=== PATIENT | female | born 1955 | race Caucasian/White ===

== ENCOUNTER 2016-10-05 20:33 | Inpatient (IN) | payer OTHER ==
[~2016-10-05] VITALS: Ht 160 cm; Wt 50.3 kg
[~2016-10-05 20:33] MED LIST: ABIL15TA2 PO; PENI500T PO
[2016-10-05 20:42] VITALS: BP 136/86; PULSE 80; RESP 20; TEMP 98.1; O2SAT 95
[2016-10-05] MEDS ORDERED: HALDOL PO (20:47)
[2016-10-05] MEDS ORDERED: FLUO-1 PO (21:07)
[2016-10-05 21:30] VITALS: RESP 18
[2016-10-05 21:43] LABS: AUTOMATED NEUTROPHIL # 7.3 TH/MM3 (1.8-7.7); BASOPHIL # 0.1 TH/MM3 (0-0.2); BASOPHIL % 0.9 % (0.0-2.0); EOSINOPHIL # 0.2 TH/MM3 (0-0.4); EOSINOPHIL % 1.7 % (0.0-4.0); HEMATOCRIT 39.8 % (35.0-46.0); HEMO FLAGS DIFF FINAL; LYMPH % 22.5 % (9.0-44.0); LYMPHOCYTE # 2.5 TH/MM3 (1.0-4.8); MEAN CELL VOLUME 91.1 FL (80.0-100.0); MEAN CORPUSCULAR HEMOGLOBIN 31.8 PG (27.0-34.0); MEAN CORPUSCULAR HGB CONC 34.8 % (32.0-36.0); MONO % 8.1 % (0.0-8.0); NEUT % 66.8 % (16.0-70.0); PLATELET COUNT 183 TH/MM3 (150-450); RED BLOOD COUNT 4.37 MIL/MM3 (4.00-5.30); RED CELL DISTRIBUTION WIDTH 13.9 % (11.6-17.2)
[2016-10-05 21:45] LABS: BLOOD, URINE NEG (NEG); GLUCOSE,URINE NEG (NEG); KETONE, URINE NEG (NEG); NITRITE,URINE NEG (NEG); PH, URINE 6.5 (5.0-8.5); URINE COLOR LIGHT-YELLOW (YELLW/STRAW)
[2016-10-05 21:46] LABS: COMMENT (UR) CULT NOT INDICATED; CULTURE IF INDICATED CULT NOT INDICATED
[2016-10-05 21:59] LABS: ACETAMINOPHEN 8.4 MCG/ML (10.0-30.0); ALT (GPT) 19 U/L (10-53)
[2016-10-05 22:00] LABS: ALCOHOL LESS THAN 3 MG/DL (0-5); ANION GAP 5 MEQ/L (5-15); AST (GOT) 15 U/L (15-37); BLOOD UREA NITROGEN 9 MG/DL (7-18); CHLORIDE 104 MEQ/L (98-107); GLOMERULAR FILTRATION RATE 146 ML/MIN (>89); SODIUM (NA) 136 MEQ/L (136-145)
[2016-10-05] MEDS ORDERED: CALCIUM CARBONATE 500 MG CHEWABLE TAB CHEW ONE (22:00)
[2016-10-05 22:01] LABS: ALKALINE PHOSPHATASE 101 U/L (45-117); TOTAL BILIRUBIN ADULT 0.2 MG/DL (0.2-1.0)
--- NOTE | 2016-10-05 22:51 | PD ---
HPI Chief Complaint: Psychiatric Symptoms Time Seen by Provider: 20:59 Travel History International Travel<30 days: No Contact w/Intl Traveler<30days: No Traveled to known affect area: No History of Present Illness HPI 60-year-old female who is brought to the emergency room under Morrow act, she lives at a halfway facility, reports that she took 82 - 5 mg HALDOL tabs about 2-3 days ago. As per [facility], they reported that they administer medications and they are not sure how patient accessed the haldol. Patient was placed under MORROW ACT as patient took these medications in attempt to commit suicide. PFSH Past Medical History Depression: Yes Cancer: No Diminished Hearing: No Endocrine: No Psychiatric: Yes Schizophrenia: Yes Tetanus Vaccination: Unknown Influenza Vaccination: No ?: Not Past Surgical History Section: Yes Gynecologic Surgery: Yes (C SECTION) Hysterectomy: No Other Surgery: Yes Social History Alcohol Use: No Tobacco Use: Yes Substance Use: No (H/O CRACK USE IN THE REMOTE PAST) Allergies-Medications (Allergen,Severity, Reaction): Coded Allergies: risperidone (Unverified Allergy, Mild, 09/30/16) diphenhydramine (Unverified Adverse Reaction, Unknown, ITCH, 09/30/16) Uncoded Allergies: SERAQUEL (Allergy, Mild, 04/05/07) Reported Meds & Prescriptions Reported Meds & Active Scripts Active Reported Prozac (Fluoxetine HCl) 10 Mg Cap 10 Mg PO DAILY [Haldol] 5 Mg PO DAILY Review of Systems General / Constitutional: No: Fever Eyes: No: Visual changes HENT: No: Headaches Cardiovascular: No: Chest Pain or Discomfort Respiratory: No: Shortness of Breath Gastrointestinal: No: Abdominal Pain Genitourinary: No: Dysuria Musculoskeletal: No: Pain Skin: No Rash Neurologic: No: Weakness Psychiatric: Positive: Depression, Suicidal Ideations Endocrine: No: Polydipsia Hematologic/Lymphatic: No: Easy Bruising Physical Exam Narrative GENERAL: No acute distress, nontoxic SKIN: Focused skin assessment warm/dry. HEAD: Atraumatic. Normocephalic. EYES: Pupils equal and round. No scleral icterus. No injection or drainage. ENT: No nasal bleeding or discharge. Mucous membranes pink and moist. NECK: Trachea midline. No JVD. CARDIOVASCULAR: Regular rate and rhythm. No murmur appreciated. RESPIRATORY: No accessory muscle use. Clear to auscultation. Breath sounds equal bilaterally. GASTROINTESTINAL: Abdomen soft, non-tender, nondistended. Hepatic and splenic margins not palpable. MUSCULOSKELETAL: No obvious deformities. No clubbing. No cyanosis. No edema. NEUROLOGICAL: Awake and alert. No obvious cranial nerve deficits. Motor grossly within normal limits. Normal speech. PSYCHIATRIC: Depressed mood, suicidal ideations Data Data Last Documented VS Vital Signs Date Time Temp Pulse Resp B/P (MAP) Pulse Ox O2 Delivery O2 Flow Rate FiO2 10/05/16 21:30 18 10/05/16 20:42 98.1 80 136/86 (103) 95 Orders Orders Complete Blood Count With Diff (10/05/16 20:59) Comprehensive Metabolic Panel (10/05/16 20:59) Urinalysis - C+S If Indicated (10/05/16 20:59) Psych Screen (10/05/16 20:59) Drug Screen, Random Urine (10/05/16 20:59) Alcohol (Ethanol) (10/05/16 20:59) Salicylates (Aspirin) (10/05/16 20:59) Tylenol (Acetaminophen) (10/05/16 20:59) Electrocardiogram (10/05/16 ) Ecg Monitoring (10/05/16 21:28) Oximetry (10/05/16 21:28) Calcium Carbonate Chew (Tums Chew) (10/05/16 22:00) Labs Laboratory Tests Test 10/05/16 21:00 White Blood Count 11.0 TH/MM3 Red Blood Count 4.37 MIL/MM3 Hemoglobin 13.9 GM/DL Hematocrit 39.8 % Mean Corpuscular Volume 91.1 FL Mean Corpuscular Hemoglobin 31.8 PG Mean Corpuscular Hemoglobin Concent 34.8 % Red Cell Distribution Width 13.9 % Platelet Count 183 TH/MM3 Mean Platelet Volume 7.8 FL Neutrophils (%) (Auto) 66.8 % Lymphocytes (%) (Auto) 22.5 % Monocytes (%) (Auto) 8.1 % Eosinophils (%) (Auto) 1.7 % Basophils (%) (Auto) 0.9 % Neutrophils # (Auto) 7.3 TH/MM3 Lymphocytes # (Auto) 2.5 TH/MM3 Monocytes # (Auto) 0.9 TH/MM3 Eosinophils # (Auto) 0.2 TH/MM3 Basophils # (Auto) 0.1 TH/MM3 CBC Comment DIFF FINAL Differential Comment Urine Color LIGHT-YELLOW Urine Turbidity CLEAR Urine pH 6.5 Urine Specific [place] 1.008 Urine Protein NEG mg/dL Urine Glucose (UA) NEG mg/dL Urine Ketones NEG mg/dL Urine Occult Blood NEG Urine Nitrite NEG Urine Bilirubin NEG Urine Urobilinogen LESS THAN 2.0 MG/DL Urine Leukocyte Esterase NEG Urine RBC 2 /hpf Urine WBC LESS THAN 1 /hpf Microscopic Urinalysis Comment CULT NOT INDICATED Blood Urea Nitrogen 9 MG/DL Creatinine 0.44 MG/DL Random Glucose 87 MG/DL Total Protein 6.0 GM/DL Albumin 3.0 GM/DL Calcium Level 7.7 MG/DL Alkaline Phosphatase 101 U/L Aspartate Amino Transf (AST/SGOT) 15 U/L Alanine Aminotransferase (ALT/SGPT) 19 U/L Total Bilirubin 0.2 MG/DL Sodium Level 136 MEQ/L Potassium Level 4.0 MEQ/L Chloride Level 104 MEQ/L Carbon Dioxide Level 27.0 MEQ/L Anion Gap 5 MEQ/L Estimat Glomerular Filtration Rate 146 ML/MIN Salicylates Level 2.4 MG/DL Urine Opiates Screen NEG Acetaminophen Level 8.4 MCG/ML Urine Barbiturates Screen NEG Urine Amphetamines Screen NEG Urine Benzodiazepines Screen NEG Urine Cocaine Screen NEG Urine Cannabinoids Screen NEG Ethyl Alcohol Level LESS THAN 3 MG/DL MDM Medical Decision Making Medical Screen Exam Complete: Yes Emergency Medical Condition: Yes Medical Record Reviewed: Yes Interpretation(s) EKG at 2142: NSR at 70bpm, qt/qtc: 409/430, no acute st or t wave changes Vital Signs Date Time Temp Pulse Resp B/P (MAP) Pulse Ox O2 Delivery O2 Flow Rate FiO2 10/05/16 21:30 18 10/05/16 20:42 98.1 80 20 136/86 (103) 95 Laboratory Tests Test 10/05/16 21:00 White Blood Count 11.0 TH/MM3 (4.0-11.0) Red Blood Count 4.37 MIL/MM3 (4.00-5.30) Hemoglobin 13.9 GM/DL (11.6-15.3) Hematocrit 39.8 % (35.0-46.0) Mean Corpuscular Volume 91.1 FL (80.0-100.0) Mean Corpuscular Hemoglobin 31.8 PG (27.0-34.0) Mean Corpuscular Hemoglobin Concent 34.8 % (32.0-36.0) Red Cell Distribution Width 13.9 % (11.6-17.2) Platelet Count 183 TH/MM3 (150-450) Mean Platelet Volume 7.8 FL (7.0-11.0) Neutrophils (%) (Auto) 66.8 % (16.0-70.0) Lymphocytes (%) (Auto) 22.5 % (9.0-44.0) Monocytes (%) (Auto) 8.1 % (0.0-8.0) Eosinophils (%) (Auto) 1.7 % (0.0-4.0) Basophils (%) (Auto) 0.9 % (0.0-2.0) Neutrophils # (Auto) 7.3 TH/MM3 (1.8-7.7) Lymphocytes # (Auto) 2.5 TH/MM3 (1.0-4.8) Monocytes # (Auto) 0.9 TH/MM3 (0-0.9) Eosinophils # (Auto) 0.2 TH/MM3 (0-0.4) Basophils # (Auto) 0.1 TH/MM3 (0-0.2) CBC Comment DIFF FINAL Differential Comment Urine Color LIGHT-YELLOW (YELLW/STRAW) Urine Turbidity CLEAR (CLEAR) Urine pH 6.5 (5.0-8.5) Urine Specific [place] 1.008 (1.002-1.035) Urine Protein NEG mg/dL (NEG-TRACE) Urine Glucose (UA) NEG mg/dL (NEG) Urine Ketones NEG mg/dL (NEG) Urine Occult Blood NEG (NEG) Urine Nitrite NEG (NEG) Urine Bilirubin NEG (NEG) Urine Urobilinogen LESS THAN 2.0 MG/DL (LESS Urine Leukocyte Esterase NEG (NEG) Urine RBC 2 /hpf (0-3) Urine WBC LESS THAN 1 /hpf (0-5) Microscopic Urinalysis Comment CULT NOT INDICATED Blood Urea Nitrogen 9 MG/DL (7-18) Creatinine 0.44 MG/DL (0.50-1.00) Random Glucose 87 MG/DL (74-106) Total Protein 6.0 GM/DL (6.4-8.2) Albumin 3.0 GM/DL (3.4-5.0) Calcium Level 7.7 MG/DL (8.5-10.1) Alkaline Phosphatase 101 U/L (45-117) Aspartate Amino Transf (AST/SGOT) 15 U/L (15-37) Alanine Aminotransferase (ALT/SGPT) 19 U/L (10-53) Total Bilirubin 0.2 MG/DL (0.2-1.0) Sodium Level 136 MEQ/L (136-145) Potassium Level 4.0 MEQ/L (3.5-5.1) Chloride Level 104 MEQ/L (98-107) Carbon Dioxide Level 27.0 MEQ/L (21.0-32.0) Anion Gap 5 MEQ/L (5-15) Estimat Glomerular Filtration Rate 146 ML/MIN (>89) Salicylates Level 2.4 MG/DL (2.8-20.0) Urine Opiates Screen NEG (NEG) Acetaminophen Level 8.4 MCG/ML (10.0-30.0) Urine Barbiturates Screen NEG (NEG) Urine Amphetamines Screen NEG (NEG) Urine Benzodiazepines Screen NEG (NEG) Urine Cocaine Screen NEG (NEG) Urine Cannabinoids Screen NEG (NEG) Ethyl Alcohol Level LESS THAN 3 MG/DL (0-5) Differential Diagnosis Differential includes drug overdose, suicidal ideations Narrative Course 60-year-old female who is brought to the emergency room under Morrow act, she lives at a halfway facility, reports that she took 82 5 mg HALDOL tabs about 2-3 days ago. VSS. Call was made to poison control, plan to obs patient. Once medically cleared, will have patient be seen by psych screener Meka Juares DO Oct 05, 2016 22:51
[2016-10-06] VITALS: BP 131/84; PULSE 79; RESP 18; O2SAT 96
[2016-10-06 02:29] VITALS: BP 145/69; PULSE 65; RESP 16
[2016-10-06 06:45] VITALS: BP 160/82; PULSE 67; RESP 18
[2016-10-06] MEDS ORDERED: LORazepam 1 MG TAB PO PRN (11:45)
[2016-10-06] MEDS ORDERED: LORazepam 2 MG/ML VIAL IM PRN ×2 (11:45)
[2016-10-06] MEDS ORDERED: LORazepam 0.5 MG TAB PO PRN (11:45)
[2016-10-06] MEDS ORDERED: ALUMINUM/MAGNESIUM/SIMETH 30 ML CUP PO PRN (11:45)
[2016-10-06] MEDS ORDERED: MAGNESIUM HYDROXIDE SUSP 30 ML CUP PO PRN (11:45)
[2016-10-06] MEDS ORDERED: ACETAMINOPHEN 325 MG TAB PO PRN (11:45)
--- NOTE | 2016-10-06 11:58 | HHI.HP ---
Provisional Diagnosis Admission Date [place] I. Major depression, single episode, severe, without psychotic features Certification of Person's Competence To Provide Express and Informed Consent I have personally examined Marley Cobb , a person being served at [facility] on, Oct 06, 2016 11:47. Express and informed consent means consent voluntarily given in writing, by a competent person, after sufficient explanation and disclosure of the subject matter involved to enable the person to make a knowing and willful decision without any element of force, fraud, deceit, duress, or other form of constraint or coercion. This person is 18 years of age or older, is not now known to be incompetent to consent to treatment with a guardian advocate, and does not have a health care surrogate or proxy currently making medical treatment decisions. I have found this person to be one of the following: [x] Competent to provide express and informed consent, as defined above, for voluntary admission to this facility and is competent to provide express and informed consent for treatment. He/she has the consistent capacity to make well reasoned, willful, and knowing decisions concerning his or her medical or mental health treatment. The person fully and consistently understands the purpose of the admission for examination/placement and is fully capable of personally exercising all rights assured [place] Incompetent to provide express and informed consent to voluntary admission, and this is incompetent to provide express and informed consent to treatment. The person must be transferred to involuntary status and a petition for a guardian advocate filed with the Circuit Court. [] Refusing to provide express and informed consent to voluntary admission but is competent to provide express and informed consent for treatment. The person must be discharged or transferred to involuntary status. Form shall be completed within 24 hours of a person's arrival at the receiving facility and filed in the clinical record of each person: 1. Admitted on a voluntary basis 2. Permitted to provide express and informed consent to his/her own treatment 3. Allowed to transfer from involuntary to voluntary status 4. Prior to permitting a person to consent to his or her own treatment after having been previously found incompetent to consent to treatment. History of Present Illness Capacity: Has Capacity HPI This is a 60-year-old female brought in under a Morrow act after overdosing on Haldol. Reportedly, the patient overdosed on approximately 82 pills of 5 mg of Haldol last Thursday. She did this as a uriel devorah suicide attempt. She lives at a long-term and states she is wanting to change her long-term. The staff at her current long-term reportedly did not know how she obtained so many pills as they administer her medicines. The patient is living at [facility] and wants to move to [facility]. She has been treated by Dr. hopson for and was seen by her doctor recently. Her toxicology screen was negative at the time of this suicide attempt as she admits she does not use illicit drugs or alcohol. The patient describes multiple symptoms of depression including depressed mood, suicidal ideation with plan and recent attempt, anhedonia, low self-esteem, markedly diminished energy, sleep and appetite disturbance, social withdrawal, anxiety and anhedonia. The patient states she feels "really tired". Patient has previously been admitted to [facility] as well as to [facility] ([facility] She has been diagnosed with psychosis in the past and she has been diagnosed with a borderline personality I Dr. Vik Mcdowell, both occurring in 2007. Review of Systems Except as stated in HPI: all other systems reviewed are Neg Past Psych History Psychological trauma history Patient does report a history of psychological trauma when she was younger but she does not wish to discuss the details at this time. Violence risk - others (6 mos) Minimal Violence risk - self (6 mos) High Substance Abuse History Drugs/Alcohol past 12 months Denied Past Family Social History Coded Allergies: risperidone (Unverified Allergy, Mild, 09/30/16) diphenhydramine (Unverified Adverse Reaction, Unknown, ITCH, 09/30/16) Uncoded Allergies: SERAQUEL (Allergy, Mild, 04/05/07) Reported Medications Fluoxetine (Prozac) 10 Mg Cap, 10 MG PO DAILY, #30 CAP 0 Refills 10/05/16 [Haldol] No Conflict Check, 5 MG PO DAILY 10/05/16 Discontinued Reported Medications Abilify (Abilify) 15 Mg Tab, 15 MG PO DAILY, 0 Refills 04/16/07 Discontinued Scripts Penicillin V Potassium (Pen Vk) 500 Mg Tab, 500 MG PO QID, #40 TAB Prov:SearsVandana MARGARETTE 10/12/[address] Ledesma with Prozac and Haldol. Family History Positive for mood and anxiety disorders. Social History Patient is currently unemployed. She does not have a recent history of alcohol or drug abuse. She also reports no family members who are supportive of her. She has been living in group homes for years. Patient's Strengths (min. 2) Verbal and has access to healthcare. Physical Exam GENERAL: SKIN: Warm and dry. HEAD: Normocephalic. EYES: No scleral icterus. No injection or drainage. NECK: Supple, trachea midline. No JVD or lymphadenopathy. CARDIOVASCULAR: Regular rate and rhythm without murmurs, gallops, or rubs. RESPIRATORY: Breath sounds equal bilaterally. No accessory muscle use. GASTROINTESTINAL: Abdomen soft, non-tender, nondistended. MUSCULOSKELETAL: No cyanosis, or edema. BACK: Nontender without obvious deformity. No CVA tenderness. Vital Signs Vital Signs Date Time Temp Pulse Resp B/P (MAP) Pulse Ox O2 Delivery O2 Flow Rate FiO2 10/06/16 06:45 67 18 160/82 (108) 10/06/16 00:00 96 Room Air 10/05/16 20:42 98.1 Mental Status Examination Speech: Hesitant Orientation: x3 Memory: Unremarkable Thought Process: Organized, Goal Directed Thought Content: Unremarkable Hallucination Type: None Attention and Concentration: Easily Distracted Suicidal Ideation: Yes Previous Suicide Attempts: Yes Homicidal Ideation: No Previous Homicide Attempts: No Insight: Fair Judgment: Unrealistic Affect: Sad Affect if Inappropriate: Blunt Mood: Sad Motor Activity: Normal gait Assessment & Plan Problem List: (1) Severe major depression, single episode, without psychotic features ICD Codes: F32.2 - Major depressive disorder, single episode, severe without psychotic features Assessment & Plan Estimated LOS: days this is a 60-year-old female with a history of previous depressive episodes and suicidality, currently Morrow acted after overdosing on approximately 80 Haldol pills. The patient has multiple symptoms of depression and is considered to be at very high risk for self-harm based on her recent behavior and current status. This physician is admitting her for evaluation and treatment. This includes a CBC and comprehensive metabolic panel. These are being obtained to determine if an infectious or metabolic process is causing or contributing to her depression. Furthermore, she will have a vitamin B-12, vitamin D and thyroid stimulating hormone levels checked as abnormalities in this area can also cause or contribute to her depression. Due to her age as well as her overdose on Haldol, she will receive an EKG to determine her cardiac conduction status and her medications will be withheld at this time. This physician spoke with the patient's nurse regarding her recent behavior in the emergency department. Apparently she has looked consistently depressed since her arrival. This physician will also request case management to become involved to gather more information regarding her depression at the current long-term and to assist with appropriate disposition planning. Jeremi Daniels MD Oct 06, 2016 11:58
--- NOTE | 2016-10-06 13:43 | EKG ---
Date Performed: 10/05/2016 Time Performed: 21:42:20 PTAGE: 60 years EKG: Sinus rhythm WITH SINUS ARRHYTHMIA POSSIBLE RIGHT VENTRICULAR CONDUCTION DELAY BORDERLINE ECG PREVIOUS TRACING : 03/21/2005 09.59 No significant change from previous tracing noted. DOCTOR: Jf Correa Interpretating Date/Time 10/06/2016 13:42:08
[2016-10-06 16:36] VITALS: BP 133/60; PULSE 70; RESP 18; TEMP 98.1; O2SAT 95
[2016-10-06] MEDS: traZODone HCL 50 MG TAB PO PRN (21:54)
[2016-10-07 06:10] VITALS: BP 130/60; PULSE 75; RESP 18; TEMP 98.1; O2SAT 95
[2016-10-07 09:31] LABS: AUTOMATED NEUTROPHIL # 4.7 TH/MM3 (1.8-7.7); BASOPHIL % 0.4 % (0.0-2.0); EOSINOPHIL # 0.1 TH/MM3 (0-0.4); EOSINOPHIL % 1.7 % (0.0-4.0); HEMATOCRIT 45.3 % (35.0-46.0); HEMO FLAGS DIFF FINAL; LYMPHOCYTE # 2.3 TH/MM3 (1.0-4.8); MEAN CELL VOLUME 91.8 FL (80.0-100.0); MEAN CORPUSCULAR HEMOGLOBIN 30.5 PG (27.0-34.0); MEAN CORPUSCULAR HGB CONC 33.2 % (32.0-36.0); NEUT % 60.9 % (16.0-70.0); PLATELET COUNT 199 TH/MM3 (150-450); RED BLOOD COUNT 4.93 MIL/MM3 (4.00-5.30); RED CELL DISTRIBUTION WIDTH 14.3 % (11.6-17.2); WHITE BLOOD COUNT 7.7 TH/MM3 (4.0-11.0)
[2016-10-07 10:07] LABS: ANION GAP 8 MEQ/L (5-15); AST (GOT) 6 U/L (15-37); BICARBONATE 27.3 MEQ/L (21.0-32.0); BLOOD UREA NITROGEN 13 MG/DL (7-18); CHLORIDE 102 MEQ/L (98-107); GLOMERULAR FILTRATION RATE 106 ML/MIN (>89); POTASSIUM 3.9 MEQ/L (3.5-5.1); SODIUM (NA) 137 MEQ/L (136-145)
[2016-10-07 10:26] LABS: ALKALINE PHOSPHATASE 92 U/L (45-117); ALT (GPT) 16 U/L (10-53); HDL CHOLESTEROL 44.5 MG/DL (40.0-60.0); LDL CHOLESTEROL 118 MG/DL (0-99); TOTAL BILIRUBIN ADULT 0.3 MG/DL (0.2-1.0)
--- NOTE | 2016-10-07 11:56 | HHI.PYPN ---
Subjective Remarks Patient seen in day room with nurse Weiss, chart review, patient initially seen by Dr. Jeremi Daniels who did the H&P. His dictation reviewed and agreed with. I do feel patient meets criteria for admission under the Morrow act I will do first opinion requests a second opinion. I have also finished the initial psychiatric order template. Patient seen by me on the unit. She did recognize me from an admission in 2004 the diagnosis at that time of schizoaffective disorder. Patient acknowledges continued auditory hallucinations of a somewhat threatening demeaning nature. She acknowledges noncompliance medication. Vague suicidal ideation and increased depression. It appears she recently moved from [facility] to a new [facility]. She may have second thoughts about that. We did discuss medications we will restart her on her Haldol at 5 mg twice a day and add Zoloft 25 mg in the a.m. We'll have the counselor contact Sue naik and also her more recent [facility] to work on issues that may be related to placement Review of Systems Constitutional: DENIES: Diaphoretic episodes, Fatigue, Fever, Weight gain, Weight loss, Chills, Dizziness, Change in appetite, Night Sweats Endocrine: DENIES: Abnorml menstrual pattern, Heat/cold intolerance, Polydipsia , Polyuria, Polyphagia Eyes: DENIES: Blurred vision, Diplopia, Eye inflammation, Eye pain, Vision loss , Photosensitivity, Double Vision Ears, nose, mouth, throat: DENIES: Tinnitus, Hearing loss, Vertigo, Nasal discharge, Oral lesions, Throat pain, Hoarseness, Ear Pain, Running Nose, Epistaxis, Sinus Pain, Toothache, Odynophagia Respiratory: DENIES: Apneas, Cough, Snoring, Wheezing, Hemoptysis, Sputum production, Shortness of breath Cardiovascular: DENIES: Chest pain, Palpitations, Syncope, Dyspnea on Exertion , PND, Lower Extremity Edema, Orthopnea, Claudication Gastrointestinal: DENIES: Abdominal pain, Black stools, Bloody stools, Constipation, Diarrhea, Nausea, Vomiting, Difficulty Swallowing, Anorexia Genitourinary: DENIES: Abnormal vaginal bleeding, Dysmenorrhea, Dyspareunia, Sexual dysfunction, Urinary frequency, Urinary incontinence, Urgency, Hematuria , Dysuria, Nocturia, Vaginal discharge Musculoskeletal: DENIES: Joint pain, Muscle aches, Stiffness, Joint Swelling, Back pain, Neck pain Integumentary: DENIES: Abnormal pigmentation, Pruritus, Rash, Nail changes, Breast masses, Breast skin changes, Nipple discharge Hematologic/lymphatic: DENIES: Bruising, Lymphadenopathy Immunologic/allergic: DENIES: Eczema, Urticaria Neurologic: DENIES: Abnormal gait, Headache, Localized weakness, Paresthesias, Seizures, Speech Problems, Tremor, Poor Balance Psychiatric: COMPLAINS OF: Anxiety, Depression, Hallucinations, Suicidal Ideation Objective Alert: Yes [place]: Person, Place, Date, Situation Mood: Anxious, Depressed Affect: Other (slight increased range and intensity) Memory Intact: Comment (poor) Hallucinations: Auditory (demanding intimidating) Delusions: Yes (vague) Delusion Type: Paranoid (vague) Suicidal: Ideation (somewhat intimidated by the voices) Homicidal: Ideation (denies) Insight/Judgment Poor Labs Test 10/07/16 08:35 White Blood Count 7.7 TH/MM3 Red Blood Count 4.93 MIL/MM3 Hemoglobin 15.1 GM/DL Hematocrit 45.3 % Mean Corpuscular Volume 91.8 FL Mean Corpuscular Hemoglobin 30.5 PG Mean Corpuscular Hemoglobin Concent 33.2 % Red Cell Distribution Width 14.3 % Platelet Count 199 TH/MM3 Mean Platelet Volume 7.3 FL Neutrophils (%) (Auto) 60.9 % Lymphocytes (%) (Auto) 30.0 % Monocytes (%) (Auto) 7.0 % Eosinophils (%) (Auto) 1.7 % Basophils (%) (Auto) 0.4 % Neutrophils # (Auto) 4.7 TH/MM3 Lymphocytes # (Auto) 2.3 TH/MM3 Monocytes # (Auto) 0.5 TH/MM3 Eosinophils # (Auto) 0.1 TH/MM3 Basophils # (Auto) 0.0 TH/MM3 CBC Comment DIFF FINAL Differential Comment Blood Urea Nitrogen 13 MG/DL Creatinine 0.58 MG/DL Random Glucose 113 MG/DL Total Protein 6.5 GM/DL Albumin 3.2 GM/DL Calcium Level 9.1 MG/DL Alkaline Phosphatase 92 U/L Aspartate Amino Transf (AST/SGOT) 6 U/L Alanine Aminotransferase (ALT/SGPT) 16 U/L Total Bilirubin 0.3 MG/DL Sodium Level 137 MEQ/L Potassium Level 3.9 MEQ/L Chloride Level 102 MEQ/L Carbon Dioxide Level 27.3 MEQ/L Anion Gap 8 MEQ/L Estimat Glomerular Filtration Rate 106 ML/MIN Triglycerides Level 93 MG/DL Cholesterol Level 181 MG/DL LDL Cholesterol 118 MG/DL HDL Cholesterol 44.5 MG/DL Cholesterol/HDL Ratio 4.06 RATIO Vitamin B12 Level 436 PG/ML 25-Hydroxy Vitamin D Total 31.5 ng/ML Thyroid Stimulating Hormone 3rd Gen 1.750 uIU/ML Vitals/IOs Vital Signs Date Time Temp Pulse Resp B/P (MAP) Pulse Ox O2 Delivery O2 Flow Rate FiO2 10/07/16 06:10 98.1 75 18 130/60 (83) 95 10/06/16 00:00 Room Air Intake and Output 10/07/16 10/07/16 10/08/16 08:00 16:00 00:00 Intake Total 480 ml Balance 480 ml Assessment & Plan Problem List: (1) Schizoaffective disorder, bipolar type ICD Codes: F25.0 - Schizoaffective disorder, bipolar type Assessment & Plan Estimated LOS: days patient remained psychotic depressed vaguely suicidal ideation she medication adjustments above Justification for Cont. Inpt. At this time patient will decompensate if placed in a lower level of care Discharge Planning To be determined Request HC Surrog/Guard Advoc?: No Danilo Reed MD Oct 07, 2016 11:56
[2016-10-07] MEDS ORDERED: hydrOXYzine HCL 50 MG TAB PO PRN (12:00)
[2016-10-07] MEDS ORDERED: MAGNESIUM HYDROXIDE SUSP 30 ML CUP PO PRN (12:00)
[2016-10-07] MEDS ORDERED: ACETAMINOPHEN 325 MG TAB PO PRN (12:00)
[2016-10-07] MEDS ORDERED: diphenhydrAMINE HCL 50 MG CAP PO PRN (12:00)
[2016-10-07] MEDS ORDERED: ALUMINUM/MAGNESIUM/SIMETH 30 ML CUP PO PRN (12:00)
--- NOTE | 2016-10-07 13:38 | EKG ---
Date Performed: 10/07/2016 Time Performed: 07:55:46 PTAGE: 60 years EKG: Sinus rhythm NORMAL ECG Compared to prior tracing no significant change PREVIOUS TRACING : 10/05/2016 21.42 DOCTOR: Cindy Vincent Interpretating Date/Time 10/07/2016 13:36:51
[2016-10-07] MEDS: NICOTINE 7 MG/24 HR PATCH T-DERMAL SCH (15:03)
[2016-10-07 16:56] VITALS: BP 123/82; PULSE 75; RESP 18; TEMP 97.9; O2SAT 97
[2016-10-07 17:44] LABS: HEMOGLOBIN A1a 1.4 %; HEMOGLOBIN A1b 0.8 %; HEMOGLOBIN LA1C 2.2 %; HEMOGLOBIN P3 3.7 %
--- NOTE | 2016-10-07 19:09 | PD.PSY.CON ---
Provisional Diagnosis Admission Date Oct 06, 2016 at 11:44 [place]. Major depression, single episode, severe, without psychotic features History of Present Illness Service Psychiatry Consult Requested By Reason for Consult second opinion Primary Care Physician No Primary Care Physician HPI This is a 60-year-old female brought in under a [place] act after overdosing on Haldol. Reportedly, the patient overdosed on approximately 82 pills of 5 mg of Haldol last Thursday. She did this as a uriel devorah suicide attempt. She lives at a long term and states she is wanting to change her long term. The staff at her current long term reportedly did not know how she obtained so many pills as they administer her medicines. The patient is living at [facility] and wants to move to [facility]. She has been treated by Dr. hopson for and was seen by her doctor recently. Her toxicology screen was negative at the time of this suicide attempt as she admits she does not use illicit drugs or alcohol. The patient describes multiple symptoms of depression including depressed mood, suicidal ideation with plan and recent attempt, anhedonia, low self-esteem, markedly diminished energy, sleep and appetite disturbance, social withdrawal, anxiety and anhedonia. The patient states she feels "really tired". Patient has previously been admitted to [facility] as well as to [facility] [place]. She has been diagnosed with psychosis in the past and she has been diagnosed with a borderline personality I Dr. Vik Mcdowell, both occurring in 2007. 10/07/2016 60 year-old woman, , domiciled in and residential in [place], with psychiatric history of BPD, schizoaffective disorder, 5 previous reported psychitrc hospitalizations, stablished out patient care, multiple SAs and parasuicidal attempts, no significant medical history, who is admitted under care of Dr. Reed due to a suicidal attempt by overdosing with haldol. Patient seen and evaluated for second opinion, [place] [address] [place] with another peer. She says that she is happy to be alive, but when overdosed just wanted to . She seems to be unable to explain or elaborate about causes or circumstances of OD. Review of Systems Constitutional: DENIES: Diaphoretic episodes, Fatigue, Fever, Weight gain, Weight loss, Chills, Dizziness, Change in appetite, Night Sweats Endocrine: DENIES: Abnorml menstrual pattern, Heat/cold intolerance, Polydipsia , Polyuria, Polyphagia Eyes: DENIES: Blurred vision, Diplopia, Eye inflammation, Eye pain, Vision loss , Photosensitivity, Double Vision Ears, nose, mouth, throat: DENIES: Tinnitus, Hearing loss, Vertigo, Nasal discharge, Oral lesions, Throat pain, Hoarseness, Ear Pain, Running Nose, Epistaxis, Sinus Pain, Toothache, Odynophagia Respiratory: DENIES: Apneas, Cough, Snoring, Wheezing, Hemoptysis, Sputum production, Shortness of breath Cardiovascular: DENIES: Chest pain, Palpitations, Syncope, Dyspnea on Exertion , PND, Lower Extremity Edema, Orthopnea, Claudication Gastrointestinal: DENIES: Abdominal pain, Black stools, Bloody stools, Constipation, Diarrhea, Nausea, Vomiting, Difficulty Swallowing, Anorexia Musculoskeletal: DENIES: Joint pain, Muscle aches, Stiffness, Joint Swelling, Back pain, Neck pain Integumentary: DENIES: Abnormal pigmentation, Pruritus, Rash, Nail changes, Breast masses, Breast skin changes, Nipple discharge Hematologic/lymphatic: DENIES: Bruising, Lymphadenopathy Immunologic/allergic: DENIES: Eczema, Urticaria Neurologic: DENIES: Abnormal gait, Headache, Localized weakness, Paresthesias, Seizures, Speech Problems, Tremor, Poor Balance Psychiatric: DENIES: Anxiety, Confusion, Mood changes, Depression, Hallucinations, Agitation, Suicidal Ideation, Homicidal Ideation, Delusions Past Family Social History Coded Allergies: risperidone (Unverified Allergy, Mild, 09/30/16) diphenhydramine (Unverified Adverse Reaction, Unknown, ITCH, 09/30/16) Uncoded Allergies: SERAQUEL (Allergy, Mild, 04/05/07) Reported Medications Fluoxetine (Prozac) 10 Mg Cap, 10 MG PO DAILY, #30 CAP 0 Refills 10/05/16 [Haldol] No Conflict Check, 5 MG PO DAILY 10/05/16 Discontinued Reported Medications Abilify (Abilify) 15 Mg Tab, 15 MG PO DAILY, 0 Refills 04/16/07 Discontinued Scripts Penicillin V Potassium (Pen Vk) 500 Mg Tab, 500 MG PO QID, #40 TAB Prov:Vandana Sears 10/12/15 Current Medications Medications (Trade) Dose Ordered Sig/Debbie Route Start Time Stop Time Status Last Admin (Ativan) 1 mg Q6H PRN PO 10/06/16 11:45 (Ativan Inj) 1 mg Q6H PRN IM 10/06/16 11:45 (Desyrel) 50 mg HS PRN PO 10/06/16 11:45 10/06/16 21:54 (Haldol) 5 mg BID PO 10/07/16 21:00 (Zoloft) 25 mg DAILY PO 10/08/16 09:00 (Tylenol) 650 mg Q4H PRN PO 10/07/16 12:00 (Milk Of Magnesia Liq) 30 ml DAILY PRN PO 10/07/16 12:00 (Mag-Al Plus Susp Liq) 30 ml Q6H PRN PO 10/07/16 12:00 (Atarax) 50 mg Q6H PRN PO 10/07/16 12:00 Miscellaneous Information 1 DAILY T-DERMAL 10/08/16 09:00 (Habitrol 7 Mg Patch.24 Hr) 1 patch DAILY T-DERMAL 10/07/16 13:00 10/07/16 15:03 Patient's Strengths (min. 2) Verbal and has access to healthcare. Physical Exam Vital Signs Vital Signs Date Time Temp Pulse Resp B/P (MAP) Pulse Ox O2 Delivery O2 Flow Rate FiO2 10/07/16 16:56 97.9 75 18 123/82 (96) 97 10/06/16 00:00 Room Air I/O 10/07/16 10/07/16 10/08/16 08:00 16:00 00:00 Intake Total 480 ml 1920 ml Balance 480 ml 1920 ml Lab Results Test 10/07/16 08:35 White Blood Count 7.7 TH/MM3 Red Blood Count 4.93 MIL/MM3 Hemoglobin 15.1 GM/DL Hematocrit 45.3 % Mean Corpuscular Volume 91.8 FL Mean Corpuscular Hemoglobin 30.5 PG Mean Corpuscular Hemoglobin Concent 33.2 % Red Cell Distribution Width 14.3 % Platelet Count 199 TH/MM3 Mean Platelet Volume 7.3 FL Neutrophils (%) (Auto) 60.9 % Lymphocytes (%) (Auto) 30.0 % Monocytes (%) (Auto) 7.0 % Eosinophils (%) (Auto) 1.7 % Basophils (%) (Auto) 0.4 % Neutrophils # (Auto) 4.7 TH/MM3 Lymphocytes # (Auto) 2.3 TH/MM3 Monocytes # (Auto) 0.5 TH/MM3 Eosinophils # (Auto) 0.1 TH/MM3 Basophils # (Auto) 0.0 TH/MM3 CBC Comment DIFF FINAL Differential Comment Blood Urea Nitrogen 13 MG/DL Creatinine 0.58 MG/DL Random Glucose 113 MG/DL Total Protein 6.5 GM/DL Albumin 3.2 GM/DL Calcium Level 9.1 MG/DL Alkaline Phosphatase 92 U/L Aspartate Amino Transf (AST/SGOT) 6 U/L Alanine Aminotransferase (ALT/SGPT) 16 U/L Total Bilirubin 0.3 MG/DL Sodium Level 137 MEQ/L Potassium Level 3.9 MEQ/L Chloride Level 102 MEQ/L Carbon Dioxide Level 27.3 MEQ/L Anion Gap 8 MEQ/L Estimat Glomerular Filtration Rate 106 ML/MIN Triglycerides Level 93 MG/DL Cholesterol Level 181 MG/DL LDL Cholesterol 118 MG/DL HDL Cholesterol 44.5 MG/DL Cholesterol/HDL Ratio 4.06 RATIO Vitamin B12 Level 436 PG/ML 25-Hydroxy Vitamin D Total 31.5 ng/ML Thyroid Stimulating Hormone 3rd Gen 1.750 uIU/ML Mental Status Examination Appearance woman, age appearing, calm and cooperative Speech: Hesitant Orientation: x3 Memory: Unremarkable Thought Process: Organized, Goal Directed Thought Content: Unremarkable Hallucination Type: None Attention and Concentration: Easily Distracted Suicidal Ideation: Yes Previous Suicide Attempts: Yes Homicidal Ideation: No Previous Homicide Attempts: No Insight: Fair Judgment: Unrealistic Affect: Sad Affect if Inappropriate: Blunt Mood: Sad Motor Activity: Normal gait Assessment & Plan Problem List: (1) Schizoaffective disorder, bipolar type ICD Codes: F25.0 - Schizoaffective disorder, bipolar type Assessment & Plan: I have examined and evaluated this patient, revised documentation, discussed case with nurse and staff involved, and I completelly agree and concur with Dr. Reed's assessment and plan Assessment & Plan Estimated LOS: days Request HC Surrog/Guard Advoc?: Zenon Ruffin MD Oct 07, 2016 19:09
[2016-10-07] MEDS: HALOPERIDOL 5 MG TAB PO SCH (20:28)
[2016-10-08 05:46] VITALS: BP 143/69; PULSE 67; RESP 15; O2SAT 96
[2016-10-08] MEDS: SERTRALINE HCL 50 MG TAB PO SCH (08:22)
[2016-10-08] MEDS: HALOPERIDOL 5 MG TAB PO SCH ×2 (08:22→20:46)
[2016-10-08] MEDS: NICOTINE 7 MG/24 HR PATCH T-DERMAL SCH (08:22)
[2016-10-08] MEDS: REMOVE OLD PATCH T-DERMAL SCH (08:42)
[2016-10-08] MEDS ORDERED: NICOTINE 21 MG/24 HR PATCH T-DERMAL SCH (09:00)
--- NOTE | 2016-10-08 09:59 | HHI.PYPN ---
Subjective Remarks Patient seen in her room today with nurse Olivia and counselor Abdoulaye. Chart reviewed. Patient compliant medication. Patient calm cooperative compliant with her medications. She states the auditory hallucinations have softened. She denies suicidality. She states she would consider returning to her [facility] until a bed can become available at [facility]. For now continue observation and assessment Review of Systems Except as stated in HPI: all other systems reviewed are Neg Objective Alert: Yes [place]: Person, Place, Date, Situation Mood: Anxious, Depressed Affect: Other (slight increased range and intensity) Memory Intact: Comment (poor) Hallucinations: Auditory (demanding intimidating) Delusions: Yes (vague) Delusion Type: Paranoid (vague) Suicidal: Ideation (somewhat intimidated by the voices) Homicidal: Ideation (denies) Insight/Judgment Poor Vitals/IOs Vital Signs Date Time Temp Pulse Resp B/P (MAP) Pulse Ox O2 Delivery O2 Flow Rate FiO2 10/08/16 05:46 67 15 143/69 (93) 96 10/07/16 16:56 97.9 10/06/16 00:00 Room Air Intake and Output 10/08/16 10/08/16 10/08/16 07:59 15:59 23:59 Intake Total 360 ml Balance 360 ml Assessment & Plan Problem List: (1) Schizoaffective disorder, bipolar type ICD Codes: F25.0 - Schizoaffective disorder, bipolar type Assessment & Plan Estimated LOS: days patient remained psychotic softening, compliant medications , for now continue treatment Justification for Cont. Inpt. This time patient will decompensate if placed in a lower level of care Discharge Planning To be determined Request HC Surrog/Guard Advoc?: No Danilo Reed MD Oct 08, 2016 09:59
[2016-10-08] MEDS ORDERED: HALO5TAB PO (11:11)
[2016-10-08] MEDS ORDERED: HALDOL PO (11:12)
[2016-10-08 17:33] VITALS: BP 139/84; PULSE 111; RESP 16; TEMP 98.5; O2SAT 94
[2016-10-08] MEDS: traZODone HCL 50 MG TAB PO PRN (20:46)
[2016-10-09 05:46] VITALS: PULSE 55; RESP 18; TEMP 97.6; O2SAT 95
[2016-10-09] MEDS: HALOPERIDOL 5 MG TAB PO SCH ×2 (08:53→20:24)
[2016-10-09] MEDS: SERTRALINE HCL 50 MG TAB PO SCH (08:53)
[2016-10-09] MEDS: REMOVE OLD PATCH T-DERMAL SCH (08:54)
[2016-10-09] MEDS: NICOTINE 7 MG/24 HR PATCH T-DERMAL SCH (08:54)
--- NOTE | 2016-10-09 13:28 | HHI.PYPN ---
Subjective Remarks Patient seen in her room with nurse Marivel, chart review, patient is sitting calmly on a bed is calm cooperative acknowledging persistent auditory hallucinations of a vague nature is somewhat decreased in intensity and duration. She denies suicidality. For now continue treatment no change Review of Systems Except as stated in HPI: all other systems reviewed are Neg Objective Alert: Yes [place]: Person, Place, Date, Situation Mood: Anxious, Depressed Affect: Other (slight increased range and intensity) Memory Intact: Comment (poor) Hallucinations: Auditory (demanding intimidating) Delusions: Yes (vague) Delusion Type: Paranoid (vague) Suicidal: Ideation (somewhat intimidated by the voices) Homicidal: Ideation (denies) Insight/Judgment Poor Vitals/IOs Vital Signs Date Time Temp Pulse Resp B/P (MAP) Pulse Ox O2 Delivery O2 Flow Rate FiO2 10/09/16 05:46 97.6 55 18 95 10/08/16 17:33 139/84 (102) 10/06/16 00:00 Room Air Intake and Output 10/09/16 10/09/16 10/09/16 07:59 15:59 23:59 Intake Total 360 ml Balance 360 ml Assessment & Plan Problem List: (1) Schizoaffective disorder, bipolar type ICD Codes: F25.0 - Schizoaffective disorder, bipolar type Assessment & Plan Estimated LOS: days patient psychosis is resolving she is compliant with medications and no behavior problem except some isolation. For now continue treatment Justification for Cont. Inpt. At this time patient will decompensate the placed on the lower level of care Discharge Planning To be determined Request HC Surrog/Guard Advoc?: No Danilo Reed MD Oct 09, 2016 13:28
[2016-10-09] MEDS: IBUPROFEN 600 MG TAB PO PRN (20:24)
[2016-10-09] MEDS: traZODone HCL 50 MG TAB PO PRN (20:24)
[2016-10-10 05:36] VITALS: BP 117/64; PULSE 63; RESP 16; TEMP 97.3
[2016-10-10] MEDS: REMOVE OLD PATCH T-DERMAL SCH (09:00)
[2016-10-10] MEDS: HALOPERIDOL 5 MG TAB PO SCH ×2 (11:03→22:24)
[2016-10-10] MEDS: SERTRALINE HCL 50 MG TAB PO SCH (11:04)
[2016-10-10] MEDS: NICOTINE 7 MG/24 HR PATCH T-DERMAL SCH (11:06)
--- NOTE | 2016-10-10 13:51 | HHI.PYPN ---
Subjective Remarks Patient seen in day room with nurse Lnida, chart reviewed. Patient is vague auditory hallucinations, some increase intensity of her affect also. She appears Concerta now by the fact that all take a shower her nicotine patch or soft. For now continue treatment Review of Systems Except as stated in HPI: all other systems reviewed are Neg Objective Alert: Yes [place]: Person, Place, Date, Situation Mood: Anxious, Depressed Affect: Other (slight increased range and intensity) Memory Intact: Comment (poor) Hallucinations: Auditory (demanding intimidating) Delusions: Yes (vague) Delusion Type: Paranoid (vague) Suicidal: Ideation (somewhat intimidated by the voices) Homicidal: Ideation (denies) Insight/Judgment Very poor Vitals/IOs Vital Signs Date Time Temp Pulse Resp B/P (MAP) Pulse Ox O2 Delivery O2 Flow Rate FiO2 10/10/16 05:36 97.3 63 16 117/64 (81) 10/09/16 05:46 95 Intake and Output 10/10/16 10/10/16 10/11/16 08:00 16:00 00:00 Intake Total 840 ml Balance 840 ml Assessment & Plan Problem List: (1) Schizoaffective disorder, bipolar type ICD Codes: F25.0 - Schizoaffective disorder, bipolar type Assessment & Plan Estimated LOS: days patient psychosis continues but softer, compliant medications. For now continue treatment Justification for Cont. Inpt. At this time patient will decompensate place to the lower level of care Discharge Planning To be determined Request HC Surrog/Guard Advoc?: No Danilo Reed MD Oct 10, 2016 13:51
[2016-10-10] MEDS: IBUPROFEN 600 MG TAB PO PRN ×2 (15:47→22:24)
[2016-10-10 17:37] VITALS: BP 113/83; PULSE 77; RESP 17; TEMP 97.8
[2016-10-11 06:12] VITALS: BP 134/75; PULSE 58; RESP 18; TEMP 97.4; O2SAT 97
[2016-10-11] MEDS: REMOVE OLD PATCH T-DERMAL SCH (09:00)
[2016-10-11] MEDS: NICOTINE 7 MG/24 HR PATCH T-DERMAL SCH (09:29)
[2016-10-11] MEDS: SERTRALINE HCL 50 MG TAB PO SCH (09:29)
[2016-10-11] MEDS: HALOPERIDOL 5 MG TAB PO SCH ×2 (09:29→20:42)
[2016-10-11 15:10] VITALS: BP 125/62; PULSE 71; RESP 18; TEMP 97.7; O2SAT 71
--- NOTE | 2016-10-11 16:16 | HHI.PYPN ---
Subjective Remarks Pt seen and discussed with staff. She has been compliant with medications. She has been withdrawn and isolative to room today. She denies suicide ideations today. No medication side effects. Objective Alert: Yes [place]: Person, Place, Date, Situation Mood: Depressed Affect: Restricted Memory Intact: Comment (poor) Hallucinations: Other Delusions: Yes Delusion Type: Paranoid (mild) Suicidal: Ideation (denies) Homicidal: Ideation (denies) Insight/Judgment poor Vitals/IOs Vital Signs Date Time Temp Pulse Resp B/P (MAP) Pulse Ox O2 Delivery O2 Flow Rate FiO2 10/11/16 15:10 97.7 71 18 125/62 (83) 71 Intake and Output 10/11/16 10/11/16 10/12/16 08:00 16:00 00:00 Intake Total 240 ml Balance 240 ml Assessment & Plan Problem List: (1) Schizoaffective disorder, bipolar type ICD Codes: F25.0 - Schizoaffective disorder, bipolar type Assessment & Plan Pt improving. Continue jaylene segovia plan. Estimated LOS: days Justification for Cont. Inpt. high risk of decompensation at a lower level of care Request HC Surrog/Guard Advoc?: Vicky Ibarra MD Oct 11, 2016 16:16
[2016-10-11 18:14] VITALS: BP 125/72; PULSE 72; RESP 18; TEMP 98.2; O2SAT 97
[2016-10-12 06:32] VITALS: BP 116/73; PULSE 71; RESP 18; TEMP 97.9; O2SAT 97
[2016-10-12] MEDS: REMOVE OLD PATCH T-DERMAL SCH (09:00)
[2016-10-12] MEDS: NICOTINE 7 MG/24 HR PATCH T-DERMAL SCH (09:02)
[2016-10-12] MEDS: SERTRALINE HCL 50 MG TAB PO SCH (09:03)
[2016-10-12] MEDS: HALOPERIDOL 5 MG TAB PO SCH ×2 (09:03→21:00)
--- NOTE | 2016-10-12 14:32 | HHI.PYPN ---
Subjective Remarks Pt seen and discussed with staff. She has been cooperative and compliant with medications and treatment. She reports mood is good. No behavioral problems on unit. She denies SI/HI. Objective Alert: Yes [place]: Person, Place, Date, Situation Mood: Calm Affect: Restricted Memory Intact: Comment (poor) Hallucinations: Other Delusions: Yes Delusion Type: Paranoid (mild) Suicidal: Ideation (denies) Homicidal: Ideation (denies) Insight/Judgment fair Vitals/IOs Vital Signs Date Time Temp Pulse Resp B/P (MAP) Pulse Ox O2 Delivery O2 Flow Rate FiO2 10/12/16 06:32 97.9 71 18 116/73 (87) 97 Intake and Output 10/12/16 10/12/16 10/12/16 07:59 15:59 23:59 Intake Total 600 ml 240 ml Balance 600 ml 240 ml Assessment & Plan Problem List: (1) Schizoaffective disorder, bipolar type ICD Codes: F25.0 - Schizoaffective disorder, bipolar type Assessment & Plan continue current tx plan. Estimated LOS: days Justification for Cont. Inpt. risk of decompensation Request HC Surrog/Guard Advoc?: No Vicky Hallman MD Oct 12, 2016 14:32
[2016-10-12 18:52] VITALS: BP 126/60; PULSE 62; RESP 18; TEMP 97.1; O2SAT 98
[2016-10-13 06:10] VITALS: BP 138/60; PULSE 65; RESP 17; TEMP 98.1; O2SAT 95
[2016-10-13] MEDS: SERTRALINE HCL 50 MG TAB PO SCH (08:09)
[2016-10-13] MEDS: HALOPERIDOL 5 MG TAB PO SCH (08:09)
[2016-10-13] MEDS: NICOTINE 7 MG/24 HR PATCH T-DERMAL SCH (08:10)
[2016-10-13] MEDS: REMOVE OLD PATCH T-DERMAL SCH (08:10)
[2016-10-13] MEDS ORDERED: ZOLO50TA PO (09:13)
[2016-10-13] MEDS ORDERED: HALO5TAB PO (09:13)
--- NOTE | 2016-10-13 09:18 | HHI.DS ---
Psychiatry Discharge Summary Inpatient Psychiatric care?: Yes Advance Directive: No Reason Not Provided: Due to Patient Condition Mental Health AdvanceDirective: No Health Care Proxy: No Admission Admission Date Oct 06, 2016 at 11:44 Admission Diagnosis: (1) Schizoaffective disorder, bipolar type ICD Code: F25.0 - Schizoaffective disorder, bipolar type Brief History This is a 60-year-old female brought in under a [place] act after overdosing on Haldol. Reportedly, the patient overdosed on approximately 82 pills of 5 mg of Haldol last Thursday. She did this as a uriel devorah suicide attempt. [place] and [place] she [place] her [place] reportedly did not know how she obtained so many pills as they administer her medicines. The patient is living at [facility] and wants to move to [facility]. She has been treated by Dr. hopson for and was seen by her doctor recently. Her toxicology screen was negative at the time of this suicide attempt as she admits she does not use illicit drugs or alcohol. The patient describes multiple symptoms of depression including depressed mood, suicidal ideation with plan and recent attempt, anhedonia, low self-esteem, markedly diminished energy, sleep and appetite disturbance, social withdrawal, anxiety and anhedonia. The patient states she feels "really tired". Patient has previously been admitted to [facility] as well as to [facility]. She has been diagnosed with psychosis in the past and she has been diagnosed with a borderline personality I Dr. Vik Mcdowell, both occurring in 2007. 10/07/2016 60 year-old woman, , domiciled in and [facility] in [place], with psychiatric history of BPD, schizoaffective disorder, 5 previous reported psychitrc hospitalizations, stablished out patient care, multiple SAs and parasuicidal attempts, no significant medical history, who is admitted under care of Dr. Reed due to a suicidal attempt by overdosing with haldol. Patient seen and evaluated for second opinion, she is [place] [address] conversing with another peer. She says that she is happy to be alive, but when overdosed just wanted to . She seems to be unable to explain or elaborate about causes or circumstances of OD. Tobacco Use In Past 30 Days: Cigarettes But Not Daily Alcohol Use: Monthly or Less Hospital Course Patient showed cooperation with the treatment team, milieu, and medication from admission. There are no significant behavioral problems. She has been compliant with medication. She now denies suicidality homicidality voices or visions. At this time I feel she has met maximum benefit of this hospitalization. There is a bed available today at [facility]. Patient to be discharged there today Rx 1 month follow-up mental health services through that facility Results Blood Pressure 138 / 60 Vital Signs Date Time Temp Pulse Resp B/P (MAP) Pulse Ox O2 Delivery O2 Flow Rate FiO2 10/13/16 06:10 98.1 65 17 138/60 (86) 95 Laboratory Results Test 10/07/16 08:35 Cholesterol Level 181 MG/DL (120-200) HDL Cholesterol 44.5 MG/DL (40.0-60.0) Hemoglobin A1c 5.5 % (4.3-6.0) LDL Cholesterol 118 MG/DL (0-99) Triglycerides Level 93 MG/DL (42-150) Summary of Procedures None done Pending results at discharge: No Medications # of Antipsychotic meds at D/C: 1 Approp Antipsych med options 1 - Minimum of three failed multiple trials of monotherapy. 2 - Documented plan to taper to monotherapy due to previous use of multiple meds OR cross-taper in progress at D/C. 3 - Documentation of augmentation of Clozapine. 4 - Justification other than those listed in allowable values 1-3, document here : Discharge Discharge Date: Oct 13, 2016 Discharge Diagnosis: (1) Schizoaffective disorder, bipolar type Diagnosis: Principal ICD Code: F25.0 - Schizoaffective disorder, bipolar type Mental Status Exam at Disch Alert oriented white female calm cooperative with me, she is normoactive, mood is euthymic with good range intensity of her affect. Speech rate and rhythm within normal limits, there are no formal thought disorders. No auditory or visual hallucinations. No delusions. Insight and judgment is poor to fair. Cognition grossly intact Pt Condition on Discharge: Stable [facility] Discharge Instructions Diet Instructions: As Tolerated, No Restrictions Activities you can perform: Regular-No Restrictions Scheduled Appointment: [facility] Discharge Time <= 30 minutes Discharge/Advance Care Plan Health Problems: (1) Schizoaffective disorder, bipolar type Goals to promote your health * To prevent worsening of your condition and complications * To maintain your health at the optimal level Directions to meet your goals Take your medications as prescribed Follow your dietary instruction Follow activity as directed Keep your appointments as scheduled Take your immunizations and boosters as scheduled If your symptoms worsen call your PCP, if no PCP go to Urgent Care Center or Emergency Room For 08/09 questions related to your inpatient stay or results of tests pending at discharge, please contact Dr. Danilo Reed at Smoking is Dangerous to Your Health. Avoid second hand smoking Danilo Reed MD Oct 13, 2016 09:18
== END 2016-10-13 12:15 | DRG 885 ==
LOC: NEPE 20:33 → NEDA 10-06 11:44 → H250 10-06 13:42
PROVIDERS: ADMIT Psychiatry & Neurology Psychiatry; ATTEND Psychiatry & Neurology Psychiatry
DX: F25.0 Schizoaffective disorder, bipolar type (principal); F17.210 Nicotine dependence, cigarettes, uncomplicated
CPT/HCPCS: 80053; 80061; 80307; 81001; 82306; 82607; 83036; 84443; 85025; 93005

== ENCOUNTER 2017-05-01 16:03 | Emergency (ER) | payer MEDICAID, OTHER ==
[~2017-05-01] VITALS: Ht 157.5 cm; Wt 49.5 kg
[~2017-05-01 16:03] MED LIST changes: -ABIL15TA2 PO; +FLUO-1 PO; +HALO5TAB PO; -PENI500T PO; +ZOLO50TA PO
[2017-05-01 16:09] VITALS: BP 146/78; PULSE 83; RESP 16; TEMP 98; O2SAT 97
[2017-05-01] MEDS ORDERED: VITA10002 PO (16:20)
[2017-05-01] MEDS ORDERED: TOPI25 PO (16:20)
--- NOTE | 2017-05-01 16:33 | PD ---
HPI Chief Complaint: Oral / Dental Pain or Problem Time Seen by Provider: 16:33 Travel History International Travel<30 days: No Contact w/Intl Traveler<30days: No Traveled to known affect area: No History of Present Illness HPI 61-year-old female presents to emergency department for evaluation of right mandibular first molar pain with associated facial swelling. Patient noticed the pain 3 days ago and noticed swelling this morning when she woke up. Denies any fever or chills. Denies any trauma. Patient has had multiple problems with her teeth in the past. Patient has no other symptoms to report. PFSH Past Medical History Depression: Yes Cancer: No Cardiovascular Problems: No Chest Pain: Yes Diabetes: No Diminished Hearing: No Endocrine: No Genitourinary: No Headaches: No Psychiatric: Yes Reproductive: No Respiratory: No Schizophrenia: Yes Seizures: No Past Surgical History Section: Yes Gynecologic Surgery: Yes (C SECTION) Hysterectomy: No Other Surgery: Yes Social History Alcohol Use: No Tobacco Use: Yes Substance Use: Yes (MARIJUANA OCCASIONALLY) Allergies-Medications (Allergen,Severity, Reaction): Coded Allergies: quetiapine (Verified Allergy, Intermediate, 05/01/17) risperidone (Unverified Allergy, Mild, 05/01/17) diphenhydramine (Unverified Adverse Reaction, Unknown, ITCH, 05/01/17) Reported Meds & Prescriptions Reported Meds & Active Scripts Active [place] (Hydrocodone-Acetaminophen) 5 Mg-325 Mg Tab 1 Tab PO Q6H PRN Ibuprofen 600 Mg Tab 600 Mg PO Q8HR PRN Clindamycin (Clindamycin HCl) 300 Mg Cap 300 Mg PO TID 10 Days Reported Vitamin B-12 (Cyanocobalamin) 1,000 Mcg Tab 1,000 Mcg PO DAILY Topamax (Topiramate) 25 Mg Tab 25 Mg PO BID Haloperidol 5 Mg Tab 10 Mg PO BID Review of Systems Except as stated in HPI: all other systems reviewed are Neg Physical Exam Narrative GENERAL: Well-nourished female patient, with bizarre affect, but in no acute distress. SKIN: Focused skin assessment warm/dry. HEAD: Atraumatic. Normocephalic. Edema along the right mandible. EYES: Pupils equal and round. No scleral icterus. No injection or drainage. ENT: No nasal bleeding or discharge. Mucous membranes pink and moist. DENTAL: No loose or chipped teeth. No malocclusion. Denies poor dentition. There is dense. In the right mandibular first bicuspid. There is a palpable abscess of the gingiva adjacent to this area. Submental spaces soft. CARDIOVASCULAR: Regular rate and rhythm. No murmur appreciated. RESPIRATORY: No accessory muscle use. Clear to auscultation. Breath sounds equal bilaterally. MUSCULOSKELETAL: No obvious deformities. No clubbing. No cyanosis. No edema. NEUROLOGICAL: Awake and alert. No obvious cranial nerve deficits. Motor grossly within normal limits. Normal speech. Data Data Last Documented VS Vital Signs Date Time Temp Pulse Resp B/P (MAP) Pulse Ox O2 Delivery O2 Flow Rate FiO2 05/01/17 16:09 98.0 83 16 146/78 (100) 97 Orders Orders Dexamethasone Inj (Decadron Inj) (05/01/17 16:45) Clindamycin (Cleocin) (05/01/17 16:45) Acetamin-Hydrocod 325-5 Mg ([place] 5-325 (05/01/17 16:45) Wound Culture And Gram Stain (05/01/17 16:34) Ed Discharge Order (05/01/17 17:12) MDM Medical Decision Making Medical Screen Exam Complete: Yes Emergency Medical Condition: Yes Medical Record Reviewed: Yes Differential Diagnosis Dental caries versus dental abscess versus gingivitis versus pulpitis versus periodontal disease. Narrative Course 61-year-old female presents to emergency department for evaluation of dental pain associated facial swelling. Patient does have a large dental abscess. Needle aspiration is done with purulent aspirate. Culture is sent. Patient will be given clindamycin. She is counseled on care. She is encouraged follow- up with primary care provider and return immediately with any acute worsening symptoms. Diagnosis Primary Impression: Dental abscess Referrals: Dentist Primary Care Physician Patient Instructions: Dental Abscess (ED), General Instructions Additional Instructions: Follow-up with a dentist Start antibiotic tomorrow. Take it until it is all gone A return immediately with any acute worsening of symptoms Med/Other Pt SpecificInfo: Prescription(s) given Scripts Hydrocodone-Acetaminophen ([place]) 5 Mg-325 Mg Tab 1 TAB PO Q6H Y for PAIN GREATER THAN 6, #12 TAB 0 Refills Prov: Vandana Sears 05/01/17 Ibuprofen (Ibuprofen) 600 Mg Tab 600 MG PO Q8HR Y for PAIN, #30 TAB 0 Refills Prov: Vandana Sears 05/01/17 Clindamycin (Clindamycin) 300 Mg Cap 300 MG PO TID for Infection for 10 Days, CAP 0 Refills Prov: Vandana Sears 05/01/17 Disposition: 01 DISCHARGE HOME Condition: Stable Vandana Sears May 01, 2017 16:33
[2017-05-01] MEDS ORDERED: ACETAMINOPHEN/HYDROcodone 325 MG/5 MG TAB PO ONE (16:45)
[2017-05-01] MEDS ORDERED: DEXAMETHASONE SOD PHOS 4 MG/ML VIAL IM ONE (16:45)
[2017-05-01] MEDS ORDERED: CLINDAMYCIN 150 MG CAP PO ONE (16:45)
[2017-05-01] MEDS ORDERED: IBUP-232 PO (17:14)
[2017-05-01] MEDS ORDERED: CLIN300C5 PO (17:14)
[2017-05-01] MEDS ORDERED: NORC5TAB PO (17:14)
== END 2017-05-01 17:23 | disposition home or self-care (01) ==
LOC: PHEFT 16:03
DX: K04.7 Periapical abscess without sinus (principal); B95.4 Other streptococcus as the cause of diseases classified elsewhere; Z72.0 Tobacco use; Z86.59 Personal history of other mental and behavioral disorders
CPT/HCPCS: 86403; 87070; 96372; 99284; J1100; 87205